=== PATIENT | female | born 1965 | race Caucasian/White ===

== ENCOUNTER 2018-12-03 05:33 | Inpatient (IN) ==
[2018-12-03] MEDS ORDERED: ceFAZolin 1,000 MG in SYRINGE 1 EACH IV ONE (06:00)
[2018-12-03] MEDS ORDERED: VANCOMYCIN INJ 1,000 MG in SODIUM CHLORIDE 0.9% 250 ML IV ONE (06:00)
[2018-12-03] MEDS ORDERED: LORazepam 1 MG TABLET PO ONE (07:11)
[2018-12-03] MEDS ORDERED: FAMOTIDINE 20 MG TABLET PO ONE (07:11)
[2018-12-03] MEDS ORDERED: VANCOMYCIN 1,000 MG VIAL ONE (07:41)
[2018-12-03] MEDS ORDERED: ceFAZolin 1,000 MG VIAL ONE (07:41)
[2018-12-03] MEDS ORDERED: FAMOTIDINE 20 MG TABLET ONE (07:42)
[2018-12-03] MEDS ORDERED: LORazepam 1 MG TABLET ONE (07:42)
[2018-12-03] MEDS: LACTATED RINGERS 1,000 ML IV SCH ×2 (08:00→11:16)
[2018-12-03] MEDS ORDERED: TRANEXAMIC ACID 1,000 MG/10 ML VIAL ONE (09:24)
[2018-12-03] MEDS ORDERED: BUPIVACAINE 0.5% 50 ML VIAL ONE (10:08)
[2018-12-03] MEDS ORDERED: EPINEPHrine 1 MG/ML VIAL ONE (10:08)
[2018-12-03] MEDS ORDERED: DEXAMETHASONE 4 MG/1 ML VIAL ONE (10:08)
[2018-12-03] MEDS ORDERED: TEMAZEPAM 7.5 MG CAPSULE PO PRN (10:30)
[2018-12-03] MEDS ORDERED: ONDANSETRON 4 MG/2 ML VIAL IV PRN (10:30)
[2018-12-03] MEDS ORDERED: MAGNESIUM HYDROXIDE SUSP 30 ML UDCUP PO PRN (10:30)
[2018-12-03] MEDS ORDERED: BISACODYL 10 MG SUPP RECTAL PRN (10:30)
[2018-12-03] MEDS ORDERED: PROMETHAZINE 25 MG/1 ML VIAL IM PRN (10:30)
[2018-12-03] MEDS ORDERED: MORPHINE 4 MG/1 ML VIAL IV PRN ×2 (10:30→13:22)
[2018-12-03] MEDS ORDERED: LACTULOSE 20 GM/30 ML UDCUP PO PRN (10:30)
[2018-12-03] MEDS ORDERED: traMADol 50 MG TABLET PO PRN (10:33)
[2018-12-03] MEDS ORDERED: METHOCARBAMOL 500 MG TABLET PO PRN (10:33)
[2018-12-03] MEDS ORDERED: BUPIVACAINE SPINAL 0.75% 2 ML AMP SPINAL ONE (11:54)
[2018-12-03] MEDS ORDERED: PROPOFOL 200 MG/20 ML VIAL IV ONE (11:54)
[2018-12-03] MEDS ORDERED: fentaNYL 100 MCG/2 ML VIAL ONE (11:54)
[2018-12-03] MEDS ORDERED: MIDAZOLAM 2 MG/2 ML VIAL ONE ×2 (11:55)
[2018-12-03] MEDS ORDERED: LACTATED RINGERS 1,000 ML IV ONE (11:55)
[2018-12-03] MEDS ORDERED: PHENYLEPHRINE 1 MG/10 ML SYRINGE IV ONE (11:55)
[2018-12-03] MEDS: ceFAZolin 2,000 MG in PREMIX 1 EACH IV SCH ×2 (15:06→22:58)
[2018-12-03] MEDS: diphenhydrAMINE CAP 25 MG CAPSULE PO PRN (18:38)
[2018-12-03] MEDS: GABAPENTIN 400 MG CAPSULE PO SCH (20:39)
[2018-12-03] MEDS: DOCUSATE SODIUM 100 MG CAPSULE PO SCH (20:39)
[2018-12-04 05:39] LABS: Basophils % 0.2 % (0.0-0.8); Eosinophils % 0.3 % (0.00-10.9); Hematocrit 35.3 VOL% (35.7-47.0); Hemoglobin 11.7 GM/DL (12.0-16.0); Immature Granulocytes % 0.5 %; Immature Granulocytes Absolute 0.06 #; Lymphocytes # 1.5 10*3/uL (1.4-4.0); Mean Corpuscular HGB Conc 33.1 GM/DL (32-36); Mean Corpuscular Volume 89.6 FL (87-102); Mean Platelet Volume 10.9 FL (9.6-12.0); Monocytes % 10.6 % (1.7-12.7); Neutrophils % 75.4 % (38.7-73.9); Platelet Count 228 T/CUMM (130-400); Red Blood Count 3.94 MC/CUMM (3.8-5.5); Red Cell Distribution Width 12.4 % (9.3-17.3); White Blood Count 11.7 T/CUMM (4-12)
[2018-12-04] MEDS: LEVOTHYROXINE 150 MCG TABLET PO SCH (06:07)
[2018-12-04 06:11] LABS: Calcium 8.6 MG/DL (8.5-10.1)
[2018-12-04] MEDS: GLYCOPYRROLATE 1 MG TABLET PO SCH (08:32)
[2018-12-04] MEDS: LOSARTAN 50 MG TABLET PO SCH (08:33)
[2018-12-04] MEDS: GABAPENTIN 400 MG CAPSULE PO SCH ×2 (08:33→21:06)
[2018-12-04] MEDS: MELOXICAM 7.5 MG TABLET PO SCH (08:33)
[2018-12-04] MEDS: DOCUSATE SODIUM 100 MG CAPSULE PO SCH ×2 (08:33→21:06)
[2018-12-04] MEDS: PANTOPRAZOLE 40 MG TABLET PO SCH (08:33)
[2018-12-04] MEDS ORDERED: Mirabegron [Myrbetriq] 25 MG PO SCH (09:00)
[2018-12-04] MEDS: diphenhydrAMINE CAP 25 MG CAPSULE PO PRN (19:38)
[2018-12-04] MEDS ORDERED: FONDAPARINUX 2.5 MG/0.5 ML SYRINGE SUBCUT SCH (20:00)
[2018-12-05] MEDS: LEVOTHYROXINE 150 MCG TABLET PO SCH (05:33)
[2018-12-05] MEDS: LOSARTAN 50 MG TABLET PO SCH (08:39)
[2018-12-05] MEDS: GABAPENTIN 400 MG CAPSULE PO SCH (08:39)
[2018-12-05] MEDS: PANTOPRAZOLE 40 MG TABLET PO SCH (08:39)
[2018-12-05] MEDS: GLYCOPYRROLATE 1 MG TABLET PO SCH (08:39)
[2018-12-05] MEDS: MELOXICAM 7.5 MG TABLET PO SCH (08:39)
[2018-12-05] MEDS: DOCUSATE SODIUM 100 MG CAPSULE PO SCH (08:39)
[2018-12-05 11:15] VITALS: BP 122/85
== END 2018-12-05 12:12 | disposition home health service (06) | DRG 470 ==
LOC: N.SDSINP 05:33 → N.OR 05:33 → N.SDSINP 10:30 → N.3E 12:53
PROVIDERS: ADMIT Orthopaedic Surgery; ATTEND Orthopaedic Surgery